=== PATIENT | female | born 1960 ===

== ENCOUNTER 2017-03-19 11:41 | Emergency (ER) | payer MEDICAID ==
[2017-03-19 12:15] VITALS: BMI 29.2
[2017-03-19 12:19] VITALS: RESP 18; O2SAT 96
--- NOTE | 2017-03-19 12:29 | C.PDOC ---
History Of Present Illness 56 yo female come in for evaluation of bodyaches, subjective fever, malaise, cough gradually developed for past 4-5 days. Pt reports, cough worse over time, became productive with yellow sputum, (+) mild chest tightness on cough. Otherwise ,pt denies high fever, chills, headache, dizziness, neck pain, drooling, dysphagia, wheezing, palpitation, CP, diaphoresis, abd. pain, V/D, UTI sx. Ambulate to ED for evaluation, not n any apparent distress. Time Seen by Provider: 03/19/17 12:26 Chief Complaint (Nursing): Flu-like Symptoms History Per: Patient Onset/Duration Of Symptoms: Gradual Past Medical History Reviewed: Historical Data, Nursing Documentation, Vital Signs Vital Signs: Last Vital Signs Temp 98.4 F 03/19/17 14:55 Pulse 60 03/19/17 14:55 Resp 18 03/19/17 14:55 BP 129/72 03/19/17 14:55 Pulse Ox 96 03/19/17 14:55 - Medical History PMH: HTN Surgical History: Back Surgery Family History: States: No Known Family Hx - Social History Hx Alcohol Use: No Hx Substance Use: No - Immunization History Hx Tetanus Toxoid Vaccination: No Hx Influenza Vaccination: No Hx Pneumococcal Vaccination: No Review Of Systems Except As Marked, All Systems Reviewed And Found Negative. Constitutional: Positive for: Fever, Malaise ENT: Positive for: Nose Discharge, Nose Congestion, Throat Pain. Negative for: Ear Pain, Ear Discharge Cardiovascular: Negative for: Chest Pain, Palpitations, Edema, Light Headedness Respiratory: Positive for: Cough. Negative for: Shortness of Breath, SOB with Excertion, Pleuritic Pain, Wheezing Gastrointestinal: Negative for: Nausea, Vomiting, Abdominal Pain, Diarrhea Genitourinary: Negative for: Dysuria Musculoskeletal: Negative for: Neck Pain, Back Pain Skin: Negative for: Rash Neurological: Negative for: Altered Mental Status, Headache, Dizziness Physical Exam - Physical Exam Appears: Well, Non-toxic, No Acute Distress Skin: Normal Color, Warm, Dry, No Rash Head: Normacephalic Eye(s): bilateral: PERRL Ear(s): Bilateral: Normal Nose: No Flaring, Discharge (B/L nasal congestion with scant clear rhinorrhea), No Tenderness Oral Mucosa: Moist, No Drooling Tongue: Normal Appearing Lips: Normal Appearing Throat: Erythema (mild b/L), No Drooling Neck: Trachea Midline, Supple Cardiovascular: Rhythm Regular, No Murmur, No JVD, Other ((-) carotid bruits B/L ) Respiratory: No Decreased Breath Sounds, No Accessory Muscle Use, No Rales, No Rhonchi, No Stridor, Wheezing (Right base scattered exp wheezing) Gastrointestinal/Abdominal: Soft, No Tenderness, No Distention, No Guarding Extremity: Normal ROM, No Deformity, No Swelling Neurological/Psych: Oriented x3, Normal Speech ED Course And Treatment O2 Sat by Pulse Oximetry: 96 Pulse Ox Interpretation: Normal - Radiology CXR: Interpreted by Me, Viewed By Me, Read By Radiologist - Other Rad CXR X-Ray: Read By Radiologist Interpretation: Cardiomegaly. Ectatic aorta. Atherosclerotic calcifications. Biapical pleural thickening. Mild left basilar atelectasis/ infiltrate. Linear atelectasis, right lung base. 5 mm nodular opacity at the level of the right 7th posterior lateral rib, possibly related to confluence of shadows. Outpatient CT of the chest may be considered for further evaluation if indicated. Progress Note: On re-evaluation, pt is afebrile, hemodynamicaly stable. NOn- toxic. Tolerate PO well in ED. PulsEOx 96% RA. Neck: Supple, (-) meningeal sign, (-) JVD. ENT: no acute findings. Lungs: CTA B/L, BS equal B/L. Abd: benign. Back: (-) CVA tenderness. Neurologicaly intact. Pt has clinical findings c/w acute bronchitis. pt advised. ref. to f/u with PMD in 2-3 days for re-eval. return if any worsening or new changes. Disposition Counseled Patient/Family Regarding: Studies Performed, Diagnosis, Need For Followup, Rx Given - Disposition Referrals: Micheline Hale MD [Medical Doctor] - Disposition: HOME/ ROUTINE Disposition Time: 12:43 Condition: STABLE Additional Instructions: Encourage fluids Take medication as prescribed Follow up with PMD in2 -3 days for re-evaluation. return to ED if any worsening or new changes. Prescriptions: Albuterol HFA [Ventolin HFA 90 mcg/actuation (8 g)] 1 puff IH Q6 #1 inhaler Cefdinir [Omnicef] 300 mg PO BID #14 cap predniSONE [predniSONE Tab] 40 mg PO DAILY #6 tab Instructions: Pneumonia (ED) Forms: [facility] ([place]adian), Work Excuse Print Language: PALAUAN - Clinical Impression Clinical Impression: Pneumonia
[2017-03-19] MEDS ORDERED: Albuterol 0.083% Inhal Sol (2.5 mg/3 mL) UD IH STA (13:04)
--- NOTE | 2017-03-19 13:45 | RAD ---
HISTORY: Cough COMPARISON: None available. TECHNIQUE: Chest PA and lateral FINDINGS: Examination limited by habitus and hypoinflation. LUNGS: Biapical pleural thickening. Mild left basilar atelectasis/ infiltrate. Linear atelectasis, right lung base. No focal consolidation. 5 mm nodular opacity at the level of the right 7th posterior lateral rib, possibly related to confluence of shadows. Please note that chest x-ray has limited sensitivity for the detection of pulmonary masses. PLEURA: No significant pleural effusion identified. No definite pneumothorax . CARDIOVASCULAR: Cardiomegaly. Ectatic aorta. Atherosclerotic calcifications. OSSEOUS STRUCTURES: Osseous demineralization. Degenerative changes. VISUALIZED UPPER ABDOMEN: Unremarkable. OTHER FINDINGS: None. IMPRESSION: Cardiomegaly. Ectatic aorta. Atherosclerotic calcifications. Biapical pleural thickening. Mild left basilar atelectasis/ infiltrate. Linear atelectasis, right lung base. 5 mm nodular opacity at the level of the right 7th posterior lateral rib, possibly related to confluence of shadows. Outpatient CT of the chest may be considered for further evaluation if indicated.
[2017-03-19] MEDS ORDERED: Albuterol 0.083% Inhal Sol (2.5 mg/3 mL) UD ONE (14:08)
[2017-03-19 15:10] VITALS: BP 129/72; PULSE 60; TEMP 98.4
== END 2017-03-19 14:55 | disposition home or self-care (01) ==
LOC: C.ER 11:41
DX: J18.9 Pneumonia, unspecified organism (principal); I10 Essential (primary) hypertension